=== PATIENT | male | born 1945 | race Two or more races ===

== ENCOUNTER → 2020-12-04 | Outpatient (CLI) | payer OTHER ==
[2020-12-04 09:58] LABS: Basophils # (auto) 0 10 ^3/uL (0-0.2); Basophils % (auto) 0.3 % (0.0-2.0); Eosinophils # (auto) 0.1 10 ^3/uL (0-0.8); Eosinophils % (auto) 0.8 % (0.0-7.0); Hematocrit 43.5 % (41.0-53.0); Hemoglobin 15.3 g/dL (13.5-17.5); Lymphocytes # (auto) 1.5 10 ^3/uL (0.4-5.4); Lymphocytes % (auto) 17.3 % (10.0-50.0); Mean Corpuscular Hemoglobin 30.4 pg (28.0-32.0); Mean Corpuscular Hgb Conc. 35.3 g/dL (32.0-36.0); Monocytes # (auto) 0.6 10 ^3/uL (0-1.3); Monocytes % (auto) 6.8 % (0.0-12.0); Neutrophils # (auto) 6.4 10 ^3/uL (1.6-8.6); Neutrophils % (auto) 74.8 % (37.0-80.0); Nucleated Red Blood Cells % 0.1 %; Platelet Count (auto) 191 10^3/uL (140-450); Red Blood Cells 5.05 10^6/uL (4.5-5.90); Red Cell Distribution Width 14.1 % (11.8-14.3); White Blood Cell 8.6 10^3/uL (4.4-10.8)
[2020-12-04 11:16] LABS: Potassium 4.1 mmol/L (3.5-5.1)
[2020-12-04 11:24] LABS: Albumin 3.3 g/dL (3.4-5.0); BUN/Creatinine Ratio 18.2; Bilirubin, Total 0.5 mg/dL (0.2-1.0); Calcium 8.8 mg/dL (8.5-10.1); Total Protein 7.3 g/dL (6.4-8.2)
== END | disposition home or self-care (01) ==
LOC: LAB 09:34
PROVIDERS: ATTEND Student in an Organized Health Care Education/Training Program
DX: Z12.11 Encounter for screening for malignant neoplasm of colon (principal); Z76.89 Persons encountering health services in other specified circumstances; E78.5 Hyperlipidemia, unspecified; E11.9 Type 2 diabetes mellitus without complications
CPT/HCPCS: 36415; 80053; 80061; 82274; 83036; 84443; 85025

== ENCOUNTER 2021-05-27 11:13 | Emergency (ER) | payer OTHER ==
[~2021-05-27] VITALS: Ht 177.8 cm; Wt 78.9 kg
[2021-05-27 13:54] LABS: Basophils # (auto) 0.1 10 ^3/uL (0-0.2); Eosinophils # (auto) 0.1 10 ^3/uL (0-0.8); Eosinophils % (auto) 1.2 % (0.0-7.0); Hematocrit 49.5 % (41.0-53.0); Lymphocytes % (auto) 21.2 % (10.0-50.0); Mean Corpuscular Hemoglobin 29.5 pg (28.0-32.0); Mean Corpuscular Hgb Conc. 34.3 g/dL (32.0-36.0); Mean Corpuscular Volume 86.1 fL (80.0-100.0); Monocytes # (auto) 0.6 10 ^3/uL (0-1.3); Monocytes % (auto) 6.8 % (0.0-12.0); Neutrophils # (auto) 6.7 10 ^3/uL (1.6-8.6); Neutrophils % (auto) 69.8 % (37.0-80.0); Nucleated Red Blood Cells % 0.2 %; Red Blood Cells 5.75 10^6/uL (4.5-5.90); Red Cell Distribution Width 13.8 % (11.8-14.3); White Blood Cell 9.6 10^3/uL (4.4-10.8)
[2021-05-27 14:15] LABS: Albumin 3.4 g/dL (3.4-5.0)
[2021-05-27 14:17] LABS: BUN/Creatinine Ratio 16.9
[2021-05-27 14:19] LABS: Bilirubin, Total 0.5 mg/dL (0.2-1.0); Total Protein 7.3 g/dL (6.4-8.2)
[2021-05-27 15:08] VITALS: BP 183/84
[2021-05-27 15:33] LABS: Urine Bacteria FEW /hpf (None Seen); Urine Blood TRACE /uL (Negative); Urine Hyaline Cast FEW /lpf (0 - 2); Urine Mucus FEW (None Seen); Urine Specific Gravity 1.031 (1.001-1.035); Urine WBC 3 /hpf (0 - 3)
== END 2021-05-27 16:15 | disposition home or self-care (01) ==
LOC: ER 11:13
DX: G44.209 Tension-type headache, unspecified, not intractable (principal); E11.65 Type 2 diabetes mellitus with hyperglycemia; I10 Essential (primary) hypertension; F17.210 Nicotine dependence, cigarettes, uncomplicated
CPT/HCPCS: 36415; 70450; 80053; 81001; 85025

== ENCOUNTER 2021-06-07 09:44 | Inpatient (IN) | payer OTHER ==
[~2021-06-07] VITALS: Ht 177.8 cm; Wt 73.0 kg
[2021-06-07 10:43] LABS: Basophils # (auto) 0.1 10 ^3/uL (0-0.2); Basophils % (auto) 0.7 % (0.0-2.0); Eosinophils # (auto) 0 10 ^3/uL (0-0.8); Eosinophils % (auto) 0.4 % (0.0-7.0); Hematocrit 50.1 % (41.0-53.0); Hemoglobin 17.4 g/dL (13.5-17.5); Lymphocytes # (auto) 1.4 10 ^3/uL (0.4-5.4); Lymphocytes % (auto) 14.3 % (10.0-50.0); Mean Corpuscular Hemoglobin 30.2 pg (28.0-32.0); Mean Corpuscular Hgb Conc. 34.9 g/dL (32.0-36.0); Mean Corpuscular Volume 86.6 fL (80.0-100.0); Monocytes # (auto) 0.6 10 ^3/uL (0-1.3); Monocytes % (auto) 6.1 % (0.0-12.0); Neutrophils % (auto) 78.5 % (37.0-80.0); Red Blood Cells 5.78 10^6/uL (4.5-5.90); Red Cell Distribution Width 13.5 % (11.8-14.3); White Blood Cell 10.1 10^3/uL (4.4-10.8)
[2021-06-07 11:05] LABS: Albumin 3.3 g/dL (3.4-5.0); Anion Gap 6 (5-15); Blood Urea Nitrogen 12 mg/dL (7-18); Calcium 8.8 mg/dL (8.5-10.1); Carbon Dioxide 25 mmol/L (21-32); Chloride 101 mmol/L (98-107); Glucose 348 mg/dL (74-106); Potassium 4.1 mmol/L (3.5-5.1); Sodium 132 mmol/L (136-145)
[2021-06-07 11:10] LABS: Alanine Aminotransferase 26 U/L (16-61); Alkaline Phosphatase 87 U/L (45-117); Aspartate Aminotransferase 18 U/L (15-37); BUN/Creatinine Ratio 12.4; Bilirubin, Total 0.7 mg/dL (0.2-1.0); GFR African American 97 mL/min; GFR Non-African American 80 mL/min; Total Protein 7.6 g/dL (6.4-8.2)
[2021-06-07] MEDS ORDERED: IOHEXOL 350 MG/ML 100ML IJ ONE (14:38)
[2021-06-07] MEDS ORDERED: cloNIDine HCL 0.1 MG TAB PO ONE (16:00)
[2021-06-07] MEDS ORDERED: DEXTROSE (50%) 50ML SYRG IV PRN (16:30)
[2021-06-07] MEDS ORDERED: NITROGLYCERIN 0.4 MG SL TAB SL PRN (16:30)
[2021-06-07] MEDS ORDERED: LORazepam 0.5 MG TAB PO PRN (16:30)
[2021-06-07] MEDS ORDERED: ALBUTEROL SULF 2.5 MG/0.5ML(0.5%) NEB SOLN NEB PRN (16:30)
[2021-06-07] MEDS ORDERED: IPRATROPIUM BROM 0.5 MG/2.5ML INH SOL NEB PRN (16:30)
[2021-06-07] MEDS ORDERED: DOCUSATE CALCIUM 240 MG CAP PO PRN (16:30)
[2021-06-07] MEDS ORDERED: ONDANSETRON HCL 4 MG/2 ML VIAL IV PRN (16:30)
[2021-06-07] MEDS ORDERED: MORPHINE SULF INJ 2 MG/ML SYRINGE 1ML IV PRN (16:30)
[2021-06-07] MEDS ORDERED: SODIUM CHLORIDE 0.9% 1,000 ML IV ONE (16:45)
[2021-06-07] MEDS: SODIUM CHLORIDE 0.9% 1,000 ML IV SCH (16:52)
[2021-06-07] MEDS: ACCU-CHEK COMFORT CURVE STRIP VI SCH (20:25)
[2021-06-07] MEDS: InsuLIN REG 1unit/0.01ml Soln (100units/ml) SC SCH (20:26)
[2021-06-07 22:00] VITALS: BP 145/71
[2021-06-07] MEDS: INSULIN LANTUS (GLARGINE) 1 /0.01ml (100units/ml) SC SCH (22:23)
[2021-06-07 23:12] VITALS: BP 145/71
[2021-06-08 00:06] VITALS: BP 145/71
[2021-06-08] MEDS: ACCU-CHEK COMFORT CURVE STRIP VI SCH ×7 (00:10→23:46)
[2021-06-08] MEDS: InsuLIN REG 1unit/0.01ml Soln (100units/ml) SC SCH ×6 (00:11→20:30)
[2021-06-08] MEDS ORDERED: ATOR10TA PO (00:12)
[2021-06-08] MEDS ORDERED: METF-490 PO (00:12)
[2021-06-08] MEDS ORDERED: LISI-275 PO (00:13)
[2021-06-08 05:00] VITALS: BP 158/69
[2021-06-08 06:03] LABS: Basophils # (auto) 0 10 ^3/uL (0-0.2); Basophils % (auto) 0.5 % (0.0-2.0); Eosinophils # (auto) 0.2 10 ^3/uL (0-0.8); Eosinophils % (auto) 1.8 % (0.0-7.0); Hematocrit 42.8 % (41.0-53.0); Hemoglobin 14.8 g/dL (13.5-17.5); Lymphocytes # (auto) 1.1 10 ^3/uL (0.4-5.4); Mean Corpuscular Hemoglobin 30.1 pg (28.0-32.0); Mean Corpuscular Hgb Conc. 34.6 g/dL (32.0-36.0); Mean Corpuscular Volume 86.9 fL (80.0-100.0); Monocytes # (auto) 0.6 10 ^3/uL (0-1.3); Monocytes % (auto) 6.8 % (0.0-12.0); Neutrophils # (auto) 7.3 10 ^3/uL (1.6-8.6); Neutrophils % (auto) 78.9 % (37.0-80.0); Red Blood Cells 4.93 10^6/uL (4.5-5.90); Red Cell Distribution Width 13.6 % (11.8-14.3); White Blood Cell 9.3 10^3/uL (4.4-10.8)
[2021-06-08 06:29] LABS: Albumin 2.5 g/dL (3.4-5.0); Anion Gap 6 (5-15); Blood Urea Nitrogen 18 mg/dL (7-18); Calcium 8.1 mg/dL (8.5-10.1); Carbon Dioxide 26 mmol/L (21-32); Chloride 109 mmol/L (98-107); Glucose 164 mg/dL (74-106); Potassium 3.7 mmol/L (3.5-5.1); Sodium 141 mmol/L (136-145)
[2021-06-08 06:38] LABS: Alanine Aminotransferase 23 U/L (16-61); Alkaline Phosphatase 68 U/L (45-117); Aspartate Aminotransferase 15 U/L (15-37); BUN/Creatinine Ratio 19.1; Bilirubin, Total 0.4 mg/dL (0.2-1.0); GFR African American 101 mL/min; GFR Non-African American 83 mL/min
[2021-06-08] MEDS: SODIUM CHLORIDE 0.9% 1,000 ML IV SCH ×2 (06:50→19:25)
[2021-06-08 08:19] LABS: Urine Bacteria NONE SEEN /hpf (None Seen); Urine Blood Negative /uL (Negative); Urine Hyaline Cast FEW /lpf (0 - 2); Urine Specific Gravity 1.027 (1.001-1.035); Urine WBC <1 /hpf (0 - 3)
[2021-06-08] MEDS: ENOXAPARIN SOD 40 MG/0.4 ML SYRINGE SC SCH (08:50)
[2021-06-08] MEDS: PANTOPRAZOLE 40 MG TAB PO SCH (08:50)
[2021-06-08] MEDS: hydrALAZINE HCL 20 MG/ML VL IV PRN ×3 (08:51→23:35)
[2021-06-08 09:00] VITALS: BP 178/77
[2021-06-08] MEDS ORDERED: ASPirin 81 mg TAB PO ONE (10:15)
[2021-06-08] MEDS ORDERED: LISINOPRIL 20 MG TAB PO ONE (10:30)
[2021-06-08 13:00] VITALS: BP 179/81
[2021-06-08 17:00] VITALS: BP 165/77
[2021-06-08] MEDS: INSULIN LANTUS (GLARGINE) 1 /0.01ml (100units/ml) SC SCH (21:42)
[2021-06-08 22:00] VITALS: BP 165/98
[2021-06-08] MEDS ORDERED: METOPROLOL TARTRATE 50 MG TAB PO SCH (22:00)
[2021-06-09] MEDS: InsuLIN REG 1unit/0.01ml Soln (100units/ml) SC SCH ×6 (00:32→20:12)
[2021-06-09] MEDS: ACCU-CHEK COMFORT CURVE STRIP VI SCH ×5 (04:00→20:25)
[2021-06-09] MEDS: MORPHINE SULF INJ 2 MG/ML SYRINGE 1ML IV PRN (04:43)
[2021-06-09 05:00] VITALS: BP 155/69
[2021-06-09] MEDS: hydrALAZINE HCL 20 MG/ML VL IV PRN (06:52)
[2021-06-09] MEDS: SODIUM CHLORIDE 0.9% 1,000 ML IV SCH ×2 (08:45→21:36)
[2021-06-09 09:00] VITALS: BP 134/65
[2021-06-09] MEDS: ASPirin 81 mg TAB PO SCH (10:33)
[2021-06-09] MEDS: ENOXAPARIN SOD 40 MG/0.4 ML SYRINGE SC SCH (10:33)
[2021-06-09] MEDS: LISINOPRIL 20 MG TAB PO SCH (10:34)
[2021-06-09] MEDS: PANTOPRAZOLE 40 MG TAB PO SCH (10:34)
[2021-06-09] MEDS: METOPROLOL TARTRATE 25 MG TAB PO SCH ×2 (10:34→21:35)
[2021-06-09] MEDS: ACETAMINOPHEN 500 MG TAB PO PRN (11:33)
[2021-06-09 13:00] VITALS: BP 129/81
[2021-06-09] MEDS: ALPRAZolam 0.5 MG TAB PO SCH ×2 (14:09→21:35)
[2021-06-09 17:00] VITALS: BP 134/64
[2021-06-09] MEDS: INSULIN LANTUS (GLARGINE) 1 /0.01ml (100units/ml) SC SCH (21:34)
[2021-06-09] MEDS: cloNIDine HCL 0.1 MG TAB PO PRN (21:36)
[2021-06-09 22:00] VITALS: BP 163/69
[2021-06-10] MEDS: ACCU-CHEK COMFORT CURVE STRIP VI SCH ×6 (00:23→20:11)
[2021-06-10] MEDS: InsuLIN REG 1unit/0.01ml Soln (100units/ml) SC SCH ×6 (04:00→20:22)
[2021-06-10 05:00] VITALS: BP 159/60
[2021-06-10] MEDS: ALPRAZolam 0.5 MG TAB PO SCH ×3 (06:00→22:36)
[2021-06-10 09:00] VITALS: BP 140/79
[2021-06-10] MEDS: METOPROLOL TARTRATE 25 MG TAB PO SCH ×2 (09:38→22:35)
[2021-06-10] MEDS: ASPirin 81 mg TAB PO SCH (09:38)
[2021-06-10] MEDS: LISINOPRIL 20 MG TAB PO SCH (09:39)
[2021-06-10] MEDS: ENOXAPARIN SOD 40 MG/0.4 ML SYRINGE SC SCH (09:39)
[2021-06-10] MEDS: PANTOPRAZOLE 40 MG TAB PO SCH (09:39)
[2021-06-10] MEDS: SODIUM CHLORIDE 0.9% 1,000 ML IV SCH (11:28)
[2021-06-10 13:00] VITALS: BP 169/82
[2021-06-10] MEDS: ACETAMINOPHEN 500 MG TAB PO PRN (20:17)
[2021-06-10 22:00] VITALS: BP 103/68
[2021-06-10] MEDS: INSULIN LANTUS (GLARGINE) 1 /0.01ml (100units/ml) SC SCH (22:39)
[2021-06-11] MEDS: ACCU-CHEK COMFORT CURVE STRIP VI SCH ×6 (00:10→20:12)
[2021-06-11] MEDS: SODIUM CHLORIDE 0.9% 1,000 ML IV SCH ×2 (00:45→14:05)
[2021-06-11] MEDS: InsuLIN REG 1unit/0.01ml Soln (100units/ml) SC SCH ×6 (04:06→20:00)
[2021-06-11] MEDS: cloNIDine HCL 0.1 MG TAB PO PRN ×2 (04:06→18:01)
[2021-06-11 05:00] VITALS: BP 188/103
[2021-06-11] MEDS: ALPRAZolam 0.5 MG TAB PO SCH ×3 (06:00→21:54)
[2021-06-11 06:14] LABS: Partial Thromboplastin Time 31.8 sec (23.6-33.0)
[2021-06-11] MEDS: hydrALAZINE HCL 20 MG/ML VL IV PRN ×2 (06:52→16:35)
[2021-06-11 09:00] VITALS: BP 132/64
[2021-06-11] MEDS: METOPROLOL TARTRATE 25 MG TAB PO SCH ×2 (09:33→21:54)
[2021-06-11] MEDS: PANTOPRAZOLE 40 MG TAB PO SCH (09:33)
[2021-06-11] MEDS: ASPirin 81 mg TAB PO SCH (09:33)
[2021-06-11] MEDS: LISINOPRIL 20 MG TAB PO SCH (09:34)
[2021-06-11] MEDS: ENOXAPARIN SOD 40 MG/0.4 ML SYRINGE SC SCH (09:34)
[2021-06-11 13:00] VITALS: BP 157/79
[2021-06-11] MEDS ORDERED: LIDOCAINE 2%HCL (LOCAL ANESTH.) INJ 20ML MDV ONE (13:23)
[2021-06-11] MEDS ORDERED: SODIUM CHL 0.9% 50 ML ONE (13:23)
[2021-06-11] MEDS ORDERED: fentaNYL CITRATE 100 MCG/2 ML VL ONE (13:23)
[2021-06-11] MEDS ORDERED: MIDAZOLAM HCL 2MG/2ML 2ml VIAL (1mg/ml) ONE (13:23)
[2021-06-11] MEDS ORDERED: ANGIOMAX 250 MG VIAL IV ONE (13:23)
[2021-06-11] MEDS ORDERED: IOHEXOL 350 MG/ML 100ML IJ ONE ×2 (13:23→14:26)
[2021-06-11] MEDS ORDERED: NITROGLYCERIN 0.4MG/DOSE SPRAY 4.9GM ONE (13:49)
[2021-06-11] MEDS ORDERED: CLOPIDOGREL 300 MG TAB ONE (14:33)
[2021-06-11] MEDS ORDERED: ASPirin 325 MG TAB ONE (14:33)
[2021-06-11 16:41] VITALS: BP 199/82
[2021-06-11] MEDS: ACETAMINOPHEN 500 MG TAB PO PRN (20:15)
[2021-06-11 22:00] VITALS: BP 168/75
[2021-06-11] MEDS: INSULIN LANTUS (GLARGINE) 1 /0.01ml (100units/ml) SC SCH (22:00)
[2021-06-12] MEDS: cloNIDine HCL 0.1 MG TAB PO PRN ×2 (00:03→12:53)
[2021-06-12] MEDS: hydrALAZINE HCL 20 MG/ML VL IV PRN ×2 (01:12→21:27)
[2021-06-12 02:55] VITALS: BP 137/71
[2021-06-12] MEDS: MORPHINE SULF INJ 2 MG/ML SYRINGE 1ML IV PRN ×2 (03:04→21:28)
[2021-06-12] MEDS: SODIUM CHLORIDE 0.9% 1,000 ML IV SCH ×2 (03:25→16:30)
[2021-06-12] MEDS: ACCU-CHEK COMFORT CURVE STRIP VI SCH ×6 (04:00→20:00)
[2021-06-12] MEDS: InsuLIN REG 1unit/0.01ml Soln (100units/ml) SC SCH ×6 (04:00→20:49)
[2021-06-12 05:33] VITALS: BP 144/94
[2021-06-12] MEDS: ALPRAZolam 0.5 MG TAB PO SCH ×4 (06:00→21:29)
[2021-06-12 09:00] VITALS: BP 145/71
[2021-06-12] MEDS: ASPirin-EC 81 mg tab PO SCH (09:23)
[2021-06-12] MEDS: PANTOPRAZOLE 40 MG TAB PO SCH (09:24)
[2021-06-12] MEDS: METOPROLOL TARTRATE 25 MG TAB PO SCH ×2 (09:24→21:29)
[2021-06-12] MEDS: CLOPIDOGREL BISULFATE 75 MG TAB PO SCH (09:24)
[2021-06-12] MEDS: ENOXAPARIN SOD 40 MG/0.4 ML SYRINGE SC SCH (09:25)
[2021-06-12] MEDS: LISINOPRIL 20 MG TAB PO SCH (09:25)
[2021-06-12 12:30] VITALS: BP 176/83
[2021-06-12 16:41] VITALS: BP 138/62
[2021-06-12] MEDS: INSULIN LANTUS (GLARGINE) 1 /0.01ml (100units/ml) SC SCH (21:33)
[2021-06-12 22:00] VITALS: BP 148/78
[2021-06-13] MEDS: ACCU-CHEK COMFORT CURVE STRIP VI SCH ×4 (00:18→11:52)
[2021-06-13] MEDS: InsuLIN REG 1unit/0.01ml Soln (100units/ml) SC SCH ×4 (00:18→11:55)
[2021-06-13 05:00] VITALS: BP 136/69
[2021-06-13] MEDS: ALPRAZolam 0.5 MG TAB PO SCH (06:00)
[2021-06-13] MEDS: SODIUM CHLORIDE 0.9% 1,000 ML IV SCH (06:14)
[2021-06-13] MEDS: ACETAMINOPHEN 500 MG TAB PO PRN (07:05)
[2021-06-13 08:00] VITALS: BP 163/80
[2021-06-13] MEDS: ASPirin-EC 81 mg tab PO SCH (08:24)
[2021-06-13 09:00] VITALS: BP 163/80
[2021-06-13] MEDS: PANTOPRAZOLE 40 MG TAB PO SCH (09:41)
[2021-06-13] MEDS: CLOPIDOGREL BISULFATE 75 MG TAB PO SCH (09:41)
[2021-06-13] MEDS: LISINOPRIL 20 MG TAB PO SCH (09:41)
[2021-06-13] MEDS: METOPROLOL TARTRATE 25 MG TAB PO SCH (09:42)
[2021-06-13] MEDS: ENOXAPARIN SOD 40 MG/0.4 ML SYRINGE SC SCH (09:42)
[2021-06-13 13:00] VITALS: BP 143/72
[2021-06-13 16:05] VITALS: BP 143/72
[2021-06-13 17:00] VITALS: BP 132/68
== END 2021-06-13 17:10 | disposition home or self-care (01) | DRG 246 ==
LOC: ER 09:44 → TELE-WESTW 16:30
PROVIDERS: ADMIT Family Medicine; ATTEND Family Medicine
PROC: 027136Z Dilation of Coronary Artery, Two Arteries with Three Drug-eluting Intraluminal Devices, Percutaneous Approach (ICD-10-PCS; principal; 2021-06-11)
PROC: 4A023N7 Measurement of Cardiac Sampling and Pressure, Left Heart, Percutaneous Approach (ICD-10-PCS; 2021-06-11)
PROC: B2111ZZ Fluoroscopy of Multiple Coronary Arteries using Low Osmolar Contrast (ICD-10-PCS; 2021-06-11)
PROC: B2151ZZ Fluoroscopy of Left Heart using Low Osmolar Contrast (ICD-10-PCS; 2021-06-11)
DX: I25.10 Atherosclerotic heart disease of native coronary artery without angina pectoris (principal); J96.00 Acute respiratory failure, unspecified whether with hypoxia or hypercapnia; J90 Pleural effusion, not elsewhere classified; E86.0 Dehydration; I10 Essential (primary) hypertension; E11.65 Type 2 diabetes mellitus with hyperglycemia; R10.13 Epigastric pain; Z20.822 Contact with and (suspected) exposure to COVID-19; F17.210 Nicotine dependence, cigarettes, uncomplicated; Z83.3 Family history of diabetes mellitus; Z98.61 Coronary angioplasty status; Z71.6 Tobacco abuse counseling
CPT/HCPCS: 36415; 71045; 71046; 71275; 80053; 81001; 82010; 82962; 83036; 83690; 83880; 84443; 84484; 85025; 85379; 85610; 85730; 86850; 86900; 86901; 87426; 93005; 93306; 93970; 96360; 97163; 99152; 99153; G0378; J1815; J2250

== ENCOUNTER 2021-06-20 11:06 | Inpatient (IN) | payer OTHER ==
[~2021-06-20] VITALS: Ht 177.8 cm; Wt 35.4 kg
[~2021-06-20 11:06] MED LIST: ATOR10TA PO; LISI-275 PO; METF-490 PO
[2021-06-20 11:55] LABS: Basophils # (auto) 0.1 10 ^3/uL (0-0.2); Basophils % (auto) 0.8 % (0.0-2.0); Eosinophils # (auto) 0 10 ^3/uL (0-0.8); Eosinophils % (auto) 0.6 % (0.0-7.0); Hematocrit 46.8 % (41.0-53.0); Hemoglobin 15.7 g/dL (13.5-17.5); Lymphocytes # (auto) 1.1 10 ^3/uL (0.4-5.4); Lymphocytes % (auto) 12.9 % (10.0-50.0); Mean Corpuscular Hemoglobin 29.1 pg (28.0-32.0); Mean Corpuscular Hgb Conc. 33.6 g/dL (32.0-36.0); Mean Corpuscular Volume 86.6 fL (80.0-100.0); Monocytes # (auto) 0.5 10 ^3/uL (0-1.3); Monocytes % (auto) 6.1 % (0.0-12.0); Neutrophils # (auto) 6.9 10 ^3/uL (1.6-8.6); Neutrophils % (auto) 79.6 % (37.0-80.0); Red Blood Cells 5.41 10^6/uL (4.5-5.90); Red Cell Distribution Width 13.5 % (11.8-14.3); White Blood Cell 8.6 10^3/uL (4.4-10.8)
[2021-06-20 12:13] LABS: Alanine Aminotransferase 23 U/L (16-61); Albumin 2.8 g/dL (3.4-5.0); Anion Gap 7 (5-15); Blood Urea Nitrogen 18 mg/dL (7-18); Calcium 8.6 mg/dL (8.5-10.1); Carbon Dioxide 26 mmol/L (21-32); Chloride 101 mmol/L (98-107); Potassium 4.4 mmol/L (3.5-5.1); Sodium 134 mmol/L (136-145)
[2021-06-20 12:18] LABS: Alkaline Phosphatase 98 U/L (45-117); Aspartate Aminotransferase 11 U/L (15-37); Bilirubin, Total 0.4 mg/dL (0.2-1.0); GFR African American 88 mL/min; GFR Non-African American 73 mL/min; Total Protein 7.2 g/dL (6.4-8.2)
[2021-06-20 13:06] LABS: Glucose 477 mg/dL (74-106)
[2021-06-20] MEDS ORDERED: InsuLIN REG 1unit/0.01ml Soln (100units/ml) IV ONE (14:30)
[2021-06-20] MEDS ORDERED: SODIUM CHLORIDE 0.9% 500 ML IV ONE ×2 (14:30→17:00)
[2021-06-20] MEDS ORDERED: ALBUTEROL SULF 2.5 MG/0.5ML(0.5%) NEB SOLN NEB PRN (17:00)
[2021-06-20] MEDS ORDERED: hydrALAZINE HCL 20 MG/ML VL IV PRN (17:00)
[2021-06-20] MEDS ORDERED: NITROGLYCERIN 0.4 MG SL TAB SL PRN (17:00)
[2021-06-20] MEDS ORDERED: DEXTROSE (50%) 50ML SYRG IV PRN (17:00)
[2021-06-20] MEDS ORDERED: MORPHINE SULFATE INJECTION 2 MG/2 ML SYRG IV PRN ×2 (17:00)
[2021-06-20] MEDS ORDERED: IPRATROPIUM BROM 0.5 MG/2.5ML INH SOL NEB PRN (17:00)
[2021-06-20] MEDS ORDERED: LORazepam 2MG/ML-1ML VIAL IV PRN (17:00)
[2021-06-20] MEDS ORDERED: ACETAMINOPHEN 325 MG RECT SUPP PR PRN (17:00)
[2021-06-20] MEDS ORDERED: ONDANSETRON HCL 4 MG/2 ML VIAL IV PRN (17:00)
[2021-06-20] MEDS ORDERED: hydrALAZINE HCL 20 MG/ML VL IV ONE (17:00)
[2021-06-20] MEDS: SODIUM CHLORIDE 0.9% 1,000 ML IV SCH (18:13)
[2021-06-20] MEDS ORDERED: cloNIDine HCL 0.1 MG TAB PO ONE (18:15)
[2021-06-20 19:14] VITALS: BP 180/109
[2021-06-20] MEDS: ACCU-CHEK COMFORT CURVE STRIP VI SCH (20:07)
[2021-06-20] MEDS: InsuLIN REG 1unit/0.01ml Soln (100units/ml) SC SCH (20:09)
[2021-06-20] MEDS ORDERED: INSULIN LANTUS (GLARGINE) 1 /0.01ml (100units/ml) SC SCH (22:00)
[2021-06-21] MEDS: ACCU-CHEK COMFORT CURVE STRIP VI SCH ×5 (00:15→17:45)
[2021-06-21] MEDS: InsuLIN REG 1unit/0.01ml Soln (100units/ml) SC SCH ×5 (00:17→17:46)
[2021-06-21 05:20] LABS: Basophils # (auto) 0.1 10 ^3/uL (0-0.2); Basophils % (auto) 0.9 % (0.0-2.0); Eosinophils # (auto) 0.2 10 ^3/uL (0-0.8); Eosinophils % (auto) 1.9 % (0.0-7.0); Hemoglobin 14.9 g/dL (13.5-17.5); Lymphocytes # (auto) 1.4 10 ^3/uL (0.4-5.4); Lymphocytes % (auto) 16.4 % (10.0-50.0); Mean Corpuscular Hemoglobin 29.7 pg (28.0-32.0); Mean Corpuscular Hgb Conc. 34.7 g/dL (32.0-36.0); Mean Corpuscular Volume 85.5 fL (80.0-100.0); Monocytes # (auto) 0.6 10 ^3/uL (0-1.3); Monocytes % (auto) 7.5 % (0.0-12.0); Neutrophils # (auto) 6.3 10 ^3/uL (1.6-8.6); Neutrophils % (auto) 73.3 % (37.0-80.0); Red Blood Cells 5.03 10^6/uL (4.5-5.90); Red Cell Distribution Width 13.4 % (11.8-14.3); White Blood Cell 8.5 10^3/uL (4.4-10.8)
[2021-06-21 05:21] LABS: Urine Bacteria NONE SEEN /hpf (None Seen); Urine Blood Negative /uL (Negative); Urine Mucus FEW (None Seen); Urine WBC 1 /hpf (0 - 3)
[2021-06-21 05:36] LABS: Albumin 2.6 g/dL (3.4-5.0); Calcium 8.5 mg/dL (8.5-10.1); Potassium 3.4 mmol/L (3.5-5.1)
[2021-06-21 05:38] LABS: Bilirubin, Total 0.5 mg/dL (0.2-1.0); Total Protein 6.3 g/dL (6.4-8.2)
[2021-06-21] MEDS: SODIUM CHLORIDE 0.9% 1,000 ML IV SCH (06:20)
[2021-06-21] MEDS ORDERED: cefTRIAXone 1GM/50ML D5W 50 ML IV SCH (09:00)
[2021-06-21] MEDS ORDERED: ENOXAPARIN SOD 40 MG/0.4 ML SYRINGE SC SCH (10:00)
[2021-06-21] MEDS ORDERED: PANTOPRAZOLE 40 MG/10 ML VIAL INJ IV SCH (10:00)
[2021-06-21] MEDS ORDERED: POTASSIUM CHL 20 Meq TABLET PO ONE (11:00)
[2021-06-21] MEDS ORDERED: ASPirin 81 mg TAB PO ONE (13:15)
[2021-06-21] MEDS ORDERED: CLOPIDOGREL BISULFATE 75 MG TAB PO ONE (13:15)
[2021-06-21] MEDS ORDERED: ERGOCALCIFEROL 50,000 UNIT(1.25MG) CAP PO SCH (14:00)
[2021-06-21] MEDS ORDERED: MULT-1018 PO (15:44)
[2021-06-21] MEDS ORDERED: LOSA100T25 PO (15:44)
[2021-06-21] MEDS ORDERED: METO25TA5 PO (15:44)
[2021-06-21] MEDS ORDERED: METF-370 PO (15:44)
[2021-06-21] MEDS ORDERED: AMIO200T33 PO (15:44)
[2021-06-21] MEDS ORDERED: GLIM4TAB42 PO (15:44)
[2021-06-21] MEDS ORDERED: PANT40TA2 PO (15:44)
[2021-06-21] MEDS ORDERED: CYAN50008 PO (15:44)
[2021-06-21] MEDS ORDERED: LINA5TAB PO (15:44)
[2021-06-21] MEDS ORDERED: hydrALAZINE HCL 20 MG/ML VL ONE (16:08)
[2021-06-21] MEDS ORDERED: hydrALAZINE HCL 20 MG/ML VL IV ONE (16:15)
[2021-06-21] MEDS ORDERED: LORazepam 2MG/ML-1ML VIAL IV ONE (17:15)
[2021-06-21] MEDS ORDERED: LISINOPRIL 10 MG TAB PO ONE (17:15)
[2021-06-21 18:00] VITALS: BP 152/69
== END 2021-06-21 18:42 | disposition home or self-care (01) | DRG 303 ==
LOC: ER 11:06 → TELE 16:56
PROVIDERS: ADMIT Family Medicine; ATTEND Internal Medicine
DX: I25.110 Atherosclerotic heart disease of native coronary artery with unstable angina pectoris (principal); J90 Pleural effusion, not elsewhere classified; E11.65 Type 2 diabetes mellitus with hyperglycemia; I10 Essential (primary) hypertension; E11.51 Type 2 diabetes mellitus with diabetic peripheral angiopathy without gangrene; E78.5 Hyperlipidemia, unspecified; F17.210 Nicotine dependence, cigarettes, uncomplicated; F41.9 Anxiety disorder, unspecified; Z83.3 Family history of diabetes mellitus; Z98.61 Coronary angioplasty status; Z20.822 Contact with and (suspected) exposure to COVID-19
CPT/HCPCS: 36415; 71045; 71275; 80053; 81001; 82010; 82306; 82962; 83735; 83880; 84443; 84484; 85025; 85379; 85610; 87426; 93005; 96360; C9113; G0378; J0696; J1815

== ENCOUNTER 2021-07-17 09:29 | Emergency (ER) | payer OTHER ==
[~2021-07-17] VITALS: Ht 180.3 cm; Wt 77.1 kg
[2021-07-17] MEDS ORDERED: cloNIDine HCL 0.1 MG TAB PO ONE ×2 (10:15→10:45)
[2021-07-17] MEDS ORDERED: ASPirin 81 mg TAB PO ONE (10:15)
[2021-07-17 10:31] LABS: Calcium 8.9 mg/dL (8.5-10.1); Chloride 101 mmol/L (98-107); Potassium 4.2 mmol/L (3.5-5.1); Sodium 135 mmol/L (136-145)
[2021-07-17 10:36] LABS: Basophils # (auto) 0 10 ^3/uL (0-0.2); Basophils % (auto) 0.6 % (0.0-2.0); Eosinophils # (auto) 0.1 10 ^3/uL (0-0.8); Eosinophils % (auto) 1.5 % (0.0-7.0); Lymphocytes # (auto) 1.3 10 ^3/uL (0.4-5.4); Lymphocytes % (auto) 17.2 % (10.0-50.0); Mean Corpuscular Hemoglobin 29.4 pg (28.0-32.0); Mean Corpuscular Hgb Conc. 34.1 g/dL (32.0-36.0); Mean Corpuscular Volume 86.4 fL (80.0-100.0); Monocytes # (auto) 0.5 10 ^3/uL (0-1.3); Monocytes % (auto) 6.8 % (0.0-12.0); Neutrophils # (auto) 5.8 10 ^3/uL (1.6-8.6); Neutrophils % (auto) 73.9 % (37.0-80.0); Red Blood Cells 5.09 10^6/uL (4.5-5.90); Red Cell Distribution Width 13.6 % (11.8-14.3); White Blood Cell 7.8 10^3/uL (4.4-10.8)
[2021-07-17 10:39] LABS: Alanine Aminotransferase 45 U/L (16-61); Albumin 3.1 g/dL (3.4-5.0); Alkaline Phosphatase 98 U/L (45-117); Anion Gap 9 (5-15); Aspartate Aminotransferase 12 U/L (15-37); BUN/Creatinine Ratio 20.6; Bilirubin, Total 0.5 mg/dL (0.2-1.0); Blood Urea Nitrogen 20 mg/dL (7-18); Carbon Dioxide 25 mmol/L (21-32); GFR African American 97 mL/min; GFR Non-African American 80 mL/min; Glucose 378 mg/dL (74-106); Total Protein 7.1 g/dL (6.4-8.2)
[2021-07-17 12:15] VITALS: BP 164/76
== END 2021-07-17 12:26 | disposition home or self-care (01) ==
LOC: ER 09:29
DX: I16.0 Hypertensive urgency (principal); R07.89 Other chest pain; E11.65 Type 2 diabetes mellitus with hyperglycemia; F17.210 Nicotine dependence, cigarettes, uncomplicated
CPT/HCPCS: 36415; 71046; 80053; 83880; 84484; 85025; 93005

== ENCOUNTER 2021-07-19 12:51 | Inpatient (IN) | payer OTHER ==
[~2021-07-19] VITALS: Ht 177.8 cm; Wt 74.6 kg
[2021-07-19] MEDS ORDERED: ASPirin 81 mg TAB PO ONE (13:15)
[2021-07-19 14:16] LABS: Basophils # (auto) 0.1 10 ^3/uL (0-0.2); Basophils % (auto) 0.6 % (0.0-2.0); Eosinophils # (auto) 0.2 10 ^3/uL (0-0.8); Eosinophils % (auto) 1.4 % (0.0-7.0); Hemoglobin 15.5 g/dL (13.5-17.5); Lymphocytes # (auto) 2.1 10 ^3/uL (0.4-5.4); Lymphocytes % (auto) 19.2 % (10.0-50.0); Mean Corpuscular Hemoglobin 29.1 pg (28.0-32.0); Mean Corpuscular Hgb Conc. 33.6 g/dL (32.0-36.0); Mean Corpuscular Volume 86.5 fL (80.0-100.0); Monocytes # (auto) 0.7 10 ^3/uL (0-1.3); Monocytes % (auto) 6.6 % (0.0-12.0); Neutrophils # (auto) 7.7 10 ^3/uL (1.6-8.6); Neutrophils % (auto) 72.2 % (37.0-80.0); Nucleated Red Blood Cells % 0.1 %; Red Blood Cells 5.32 10^6/uL (4.5-5.90); Red Cell Distribution Width 13.3 % (11.8-14.3); White Blood Cell 10.7 10^3/uL (4.4-10.8)
[2021-07-19 14:26] LABS: Albumin 3.2 g/dL (3.4-5.0); Anion Gap 12 (5-15); Blood Urea Nitrogen 18 mg/dL (7-18); Carbon Dioxide 22 mmol/L (21-32); Chloride 103 mmol/L (98-107); Glucose 260 mg/dL (74-106); Magnesium 2.1 mg/dL (1.6-2.6); Sodium 137 mmol/L (136-145)
[2021-07-19 14:31] LABS: Alanine Aminotransferase 34 U/L (16-61); Alkaline Phosphatase 100 U/L (45-117); Aspartate Aminotransferase 11 U/L (15-37); BUN/Creatinine Ratio 16.1; Bilirubin, Total 0.4 mg/dL (0.2-1.0); GFR African American 82 mL/min; GFR Non-African American 68 mL/min; Total Protein 7.4 g/dL (6.4-8.2)
[2021-07-19] MEDS ORDERED: NITROGLYCERIN 0.4 MG SL TAB SL ONE (18:00)
[2021-07-19] MEDS ORDERED: ACETAMINOPHEN 325 MG TAB PO PRN (22:30)
[2021-07-19] MEDS ORDERED: NITROGLYCERIN 0.4 MG SL TAB SL PRN (22:30)
[2021-07-19] MEDS ORDERED: DEXTROSE (50%) 50ML SYRG IV PRN (22:30)
[2021-07-19] MEDS ORDERED: MORPHINE SULFATE INJECTION 2 MG/ML SYRG IV PRN (22:30)
[2021-07-19] MEDS ORDERED: DOCUSATE SOD 100 MG CAP PO PRN (22:30)
[2021-07-19] MEDS ORDERED: MORPHINE SULFATE 4 MG/ML SYR/VIAL IV PRN (22:30)
[2021-07-19] MEDS ORDERED: ONDANSETRON HCL 4 MG/2 ML VIAL IV PRN (22:30)
[2021-07-20] VITALS (7 sets, daily range): BP systolic 137–185; BP diastolic 63–81
[2021-07-20] MEDS: AZITHROMYCIN 500MG/ 250ML 250 ML IV SCH ×2 (00:11→21:58)
[2021-07-20] MEDS: hydrALAZINE HCL 20 MG/ML VL IV PRN ×2 (03:07→12:00)
[2021-07-20] MEDS: HYDROcodone-ACET 5/325MG TAB PO PRN (05:10)
[2021-07-20] MEDS: ACCU-CHEK COMFORT CURVE STRIP VI SCH ×4 (06:26→22:00)
[2021-07-20] MEDS: InsuLIN REG 1unit/0.01ml Soln (100units/ml) SC SCH ×4 (06:27→22:00)
[2021-07-20] MEDS: SODIUM CHLOR 0.9% PF (SALINE LOCK) 10ML VIAL/SYR IV SCH ×3 (06:44→21:58)
[2021-07-20 08:45] LABS: Basophils # (auto) 0 10 ^3/uL (0-0.2); Basophils % (auto) 0.6 % (0.0-2.0); Eosinophils # (auto) 0.2 10 ^3/uL (0-0.8); Hematocrit 44.2 % (41.0-53.0); Hemoglobin 15.1 g/dL (13.5-17.5); Lymphocytes # (auto) 1.8 10 ^3/uL (0.4-5.4); Lymphocytes % (auto) 21.9 % (10.0-50.0); Mean Corpuscular Hemoglobin 29.5 pg (28.0-32.0); Mean Corpuscular Hgb Conc. 34.2 g/dL (32.0-36.0); Mean Corpuscular Volume 86.2 fL (80.0-100.0); Monocytes # (auto) 0.5 10 ^3/uL (0-1.3); Monocytes % (auto) 6.5 % (0.0-12.0); Neutrophils # (auto) 5.7 10 ^3/uL (1.6-8.6); Nucleated Red Blood Cells % 0.1 %; Red Blood Cells 5.13 10^6/uL (4.5-5.90); Red Cell Distribution Width 13.4 % (11.8-14.3); White Blood Cell 8.2 10^3/uL (4.4-10.8)
[2021-07-20 08:59] LABS: Albumin 2.9 g/dL (3.4-5.0); BUN/Creatinine Ratio 21.8; Calcium 8.9 mg/dL (8.5-10.1); Potassium 3.8 mmol/L (3.5-5.1)
[2021-07-20 09:02] LABS: Bilirubin, Total 0.6 mg/dL (0.2-1.0); Total Protein 6.7 g/dL (6.4-8.2)
[2021-07-20] MEDS: FAMOTIDINE (10MG/ML) 2ML VL IV SCH ×2 (09:56→21:58)
[2021-07-20] MEDS: ASPirin 81 mg TAB PO SCH (09:56)
[2021-07-20] MEDS ORDERED: ZOLPIDEM TARTRATE 5 MG TAB PO PRN (10:45)
[2021-07-20] MEDS ORDERED: CLOPIDOGREL BISULFATE 75 MG TAB PO ONE (11:00)
[2021-07-20] MEDS: ATORVASTATIN 20 MG TAB PO SCH (21:58)
[2021-07-20] MEDS: METOPROLOL TARTRATE 25 MG TAB PO SCH ×3 (21:58→22:58)
[2021-07-21] MEDS: SODIUM CHLOR 0.9% PF (SALINE LOCK) 10ML VIAL/SYR IV SCH ×3 (02:00→21:31)
[2021-07-21] MEDS: ACCU-CHEK COMFORT CURVE STRIP VI SCH ×4 (04:45→21:31)
[2021-07-21] MEDS: hydrALAZINE HCL 20 MG/ML VL IV PRN (04:45)
[2021-07-21 05:00] VITALS: BP 169/78
[2021-07-21] MEDS: InsuLIN REG 1unit/0.01ml Soln (100units/ml) SC SCH ×4 (06:15→21:39)
[2021-07-21] MEDS: HYDROcodone-ACET 5/325MG TAB PO PRN (06:41)
[2021-07-21 08:50] VITALS: BP 154/76
[2021-07-21] MEDS: FAMOTIDINE (10MG/ML) 2ML VL IV SCH ×2 (10:09→21:31)
[2021-07-21] MEDS: ASPirin 81 mg TAB PO SCH (10:09)
[2021-07-21] MEDS: METOPROLOL TARTRATE 25 MG TAB PO SCH ×2 (10:09→21:39)
[2021-07-21] MEDS: LISINOPRIL 20 MG TAB PO SCH (10:10)
[2021-07-21] MEDS: CLOPIDOGREL BISULFATE 75 MG TAB PO SCH (10:10)
[2021-07-21 11:10] LABS: Cholesterol 123 mg/dL (< 200)
[2021-07-21 11:13] LABS: HDL Cholesterol 51 mg/dL (40-59); LDL Cholesterol 67 mg/dL (< 100); Triglycerides 78 mg/dL (< 150)
[2021-07-21 12:30] VITALS: BP 145/66
[2021-07-21 16:50] VITALS: BP 134/78
[2021-07-21] MEDS: AZITHROMYCIN 500MG/ 250ML 250 ML IV SCH (21:31)
[2021-07-21] MEDS: ATORVASTATIN 20 MG TAB PO SCH (21:31)
[2021-07-21 22:00] VITALS: BP 130/61
[2021-07-22] VITALS (7 sets, daily range): BP systolic 126–161; BP diastolic 59–93
[2021-07-22] MEDS: hydrALAZINE HCL 20 MG/ML VL IV PRN ×2 (05:29→22:44)
[2021-07-22] MEDS: SODIUM CHLOR 0.9% PF (SALINE LOCK) 10ML VIAL/SYR IV SCH ×3 (05:54→21:07)
[2021-07-22] MEDS: InsuLIN REG 1unit/0.01ml Soln (100units/ml) SC SCH ×4 (06:10→21:26)
[2021-07-22] MEDS: ACCU-CHEK COMFORT CURVE STRIP VI SCH ×4 (06:17→21:20)
[2021-07-22] MEDS ORDERED: ADENOSINE 61 MG in GIVE UN-DILUTED 0 ML IV STA (08:33)
[2021-07-22] MEDS: CLOPIDOGREL BISULFATE 75 MG TAB PO SCH (10:16)
[2021-07-22] MEDS: ASPirin 81 mg TAB PO SCH (10:16)
[2021-07-22] MEDS: FAMOTIDINE (10MG/ML) 2ML VL IV SCH ×2 (10:16→21:07)
[2021-07-22] MEDS: LISINOPRIL 20 MG TAB PO SCH (10:18)
[2021-07-22] MEDS: METOPROLOL TARTRATE 25 MG TAB PO SCH ×2 (10:18→21:32)
[2021-07-22] MEDS: LORazepam 2MG/ML-1ML VIAL IV PRN (12:29)
[2021-07-22] MEDS ORDERED: AZITHROMYCIN 250 MG TAB PO SCH (20:00)
[2021-07-22] MEDS: ATORVASTATIN 20 MG TAB PO SCH (21:07)
[2021-07-23 05:00] VITALS: BP 122/68
[2021-07-23] MEDS: SODIUM CHLOR 0.9% PF (SALINE LOCK) 10ML VIAL/SYR IV SCH ×2 (05:01→14:46)
[2021-07-23] MEDS: LORazepam 2MG/ML-1ML VIAL IV PRN (05:56)
[2021-07-23] MEDS: ACCU-CHEK COMFORT CURVE STRIP VI SCH ×2 (06:00→11:33)
[2021-07-23] MEDS: InsuLIN REG 1unit/0.01ml Soln (100units/ml) SC SCH ×2 (06:04→11:36)
[2021-07-23 08:47] VITALS: BP 136/76
[2021-07-23] MEDS: FAMOTIDINE (10MG/ML) 2ML VL IV SCH (09:04)
[2021-07-23] MEDS: ASPirin 81 mg TAB PO SCH (09:05)
[2021-07-23] MEDS: METOPROLOL TARTRATE 25 MG TAB PO SCH (09:05)
[2021-07-23] MEDS: LISINOPRIL 20 MG TAB PO SCH (09:06)
[2021-07-23] MEDS: CLOPIDOGREL BISULFATE 75 MG TAB PO SCH (09:06)
[2021-07-23] MEDS: hydrALAZINE HCL 20 MG/ML VL IV PRN (11:33)
[2021-07-23 12:35] VITALS: BP 157/77
[2021-07-23] MEDS ORDERED: cloNIDine HCL 0.1 MG TAB PO ONE (15:00)
== END 2021-07-23 17:00 | disposition home or self-care (01) | DRG 313 ==
LOC: ER 12:51 → EDUNIT# 22:17 → TELE 22:17 → TELE-WESTW 07-20 02:33
PROVIDERS: ADMIT Nurse Practitioner Family; ATTEND Family Medicine
DX: R07.89 Other chest pain (principal); J18.9 Pneumonia, unspecified organism; I10 Essential (primary) hypertension; E78.5 Hyperlipidemia, unspecified; F41.9 Anxiety disorder, unspecified; Z20.822 Contact with and (suspected) exposure to COVID-19; E11.65 Type 2 diabetes mellitus with hyperglycemia; I25.10 Atherosclerotic heart disease of native coronary artery without angina pectoris; Z79.84 Long term (current) use of oral hypoglycemic drugs; Z82.49 Family history of ischemic heart disease and other diseases of the circulatory system; Z83.3 Family history of diabetes mellitus; Z95.5 Presence of coronary angioplasty implant and graft; Z90.49 Acquired absence of other specified parts of digestive tract
CPT/HCPCS: 36415; 71046; 78452; 80053; 80061; 82962; 83036; 83735; 83880; 84484; 85025; 87426; 93005; 93017; 96365; G0378; J0153; J1815; J3490

== ENCOUNTER 2021-07-31 10:38 | Observation (INO) | payer OTHER ==
[~2021-07-31] VITALS: Ht 177.8 cm; Wt 72.1 kg
[2021-07-31 12:28] LABS: Basophils # (auto) 0 10 ^3/uL (0-0.2); Basophils % (auto) 0.5 % (0.0-2.0); Eosinophils # (auto) 0.1 10 ^3/uL (0-0.8); Eosinophils % (auto) 1.2 % (0.0-7.0); Hemoglobin 14.2 g/dL (13.5-17.5); Lymphocytes # (auto) 1.8 10 ^3/uL (0.4-5.4); Lymphocytes % (auto) 19.6 % (10.0-50.0); Mean Corpuscular Hemoglobin 29.7 pg (28.0-32.0); Mean Corpuscular Hgb Conc. 34.6 g/dL (32.0-36.0); Mean Corpuscular Volume 85.7 fL (80.0-100.0); Monocytes # (auto) 0.6 10 ^3/uL (0-1.3); Neutrophils # (auto) 6.8 10 ^3/uL (1.6-8.6); Neutrophils % (auto) 72.7 % (37.0-80.0); Red Blood Cells 4.79 10^6/uL (4.5-5.90); Red Cell Distribution Width 13.2 % (11.8-14.3); White Blood Cell 9.4 10^3/uL (4.4-10.8)
[2021-07-31 12:43] LABS: INR 0.96 (0.9-1.15); Partial Thromboplastin Time 32.2 sec (23.6-33.0)
[2021-07-31 12:45] LABS: Calcium 9.1 mg/dL (8.5-10.1); Chloride 99 mmol/L (98-107); Potassium 4.5 mmol/L (3.5-5.1); Sodium 133 mmol/L (136-145)
[2021-07-31 12:54] LABS: Alanine Aminotransferase 19 U/L (16-61); Albumin 3.2 g/dL (3.4-5.0); Alkaline Phosphatase 119 U/L (45-117); Anion Gap 3 (5-15); Aspartate Aminotransferase 7 U/L (15-37); BUN/Creatinine Ratio 18.9; Bilirubin, Total 0.4 mg/dL (0.2-1.0); Blood Urea Nitrogen 21 mg/dL (7-18); Carbon Dioxide 31 mmol/L (21-32); GFR African American 83 mL/min; GFR Non-African American 69 mL/min; Glucose 322 mg/dL (74-106); Total Protein 7.1 g/dL (6.4-8.2)
[2021-07-31] MEDS ORDERED: cloNIDine HCL 0.1 MG TAB ONE (13:22)
[2021-07-31] MEDS ORDERED: cloNIDine HCL 0.1 MG TAB PO ONE (13:30)
[2021-07-31] MEDS ORDERED: ISOS1TAB28 PO (13:45)
[2021-07-31] MEDS ORDERED: PAR20T GT (13:45)
[2021-07-31] MEDS ORDERED: METO-158 PO (13:45)
[2021-07-31] MEDS ORDERED: METF-372 PO (13:45)
[2021-07-31] MEDS ORDERED: AZIT500T66 PO (13:45)
[2021-07-31] MEDS ORDERED: ATOR40TA52 PO (13:45)
[2021-07-31] MEDS ORDERED: TRAM50TA2 PO (13:45)
[2021-07-31] MEDS ORDERED: LISI40TA11 PO (13:45)
[2021-07-31] MEDS ORDERED: CLOP75TA28 PO (13:46)
[2021-07-31] MEDS ORDERED: ASPI-543 PO (13:46)
[2021-07-31] MEDS ORDERED: ASPirin-EC 81 mg tab PO ONE (17:00)
[2021-07-31] MEDS ORDERED: METOPROLOL TARTRATE 1MG/1ML-5ML VIAL IV ONE (17:00)
[2021-07-31] MEDS ORDERED: MORPHINE SULFATE INJECTION 2 MG/ML SYRG IV PRN (18:00)
[2021-07-31] MEDS ORDERED: NITROGLYCERIN 0.4 MG SL TAB SL PRN (18:00)
[2021-07-31] MEDS ORDERED: DEXTROSE (50%) 50ML SYRG IV PRN (18:00)
[2021-07-31] MEDS ORDERED: ALPRAZolam 0.25 MG TAB PO PRN (18:00)
[2021-07-31 21:10] VITALS: BP 177/89
[2021-07-31] MEDS: RANOLAZINE ER 500 MG TAB PO SCH (21:46)
[2021-07-31] MEDS: ACCU-CHEK COMFORT CURVE STRIP VI SCH (21:47)
[2021-07-31] MEDS: METOPROLOL TARTRATE 25 MG TAB PO SCH (21:52)
[2021-07-31] MEDS: hydrALAZINE HCL 20 MG/ML VL IV PRN (21:57)
[2021-07-31 22:00] VITALS: BP 177/89
[2021-07-31] MEDS ORDERED: ATORVASTATIN 20 MG TAB PO SCH (22:00)
[2021-07-31] MEDS: InsuLIN REG 1unit/0.01ml Soln (100units/ml) SC SCH (22:02)
[2021-08-01 05:00] VITALS: BP 153/69
[2021-08-01] MEDS: InsuLIN REG 1unit/0.01ml Soln (100units/ml) SC SCH ×2 (06:20→12:01)
[2021-08-01] MEDS: ACCU-CHEK COMFORT CURVE STRIP VI SCH ×2 (06:20→11:42)
[2021-08-01] MEDS: hydrALAZINE HCL 20 MG/ML VL IV PRN (06:21)
[2021-08-01 08:00] VITALS: BP 144/69
[2021-08-01] MEDS: RANOLAZINE ER 500 MG TAB PO SCH (09:43)
[2021-08-01] MEDS: METOPROLOL TARTRATE 25 MG TAB PO SCH (09:46)
[2021-08-01] MEDS ORDERED: ISOSORBIDE MONONITRATE ER 60 MG TAB PO SCH (10:00)
[2021-08-01] MEDS ORDERED: ASPirin-EC 81 mg tab PO SCH (10:00)
[2021-08-01] MEDS ORDERED: CLOPIDOGREL BISULFATE 75 MG TAB PO SCH (10:00)
[2021-08-01] MEDS ORDERED: LISINOPRIL 20 MG TAB PO SCH (10:00)
[2021-08-01] MEDS ORDERED: PARoxetine 20 MG TAB PO SCH (10:00)
[2021-08-01] MEDS ORDERED: INSULIN LANTUS (GLARGINE) 1 /0.01ml (100units/ml) SC ONE (11:15)
[2021-08-01] MEDS ORDERED: EMPA1TAB3 PO (12:29)
[2021-08-01 13:00] VITALS: BP 111/71
[2021-08-01] MEDS ORDERED: INSULIN LANTUS (GLARGINE) 1 /0.01ml (100units/ml) SC SCH (22:00)
== END 2021-08-01 17:30 | disposition home or self-care (01) ==
LOC: ER 10:38 → INTOOBSV 17:50 → TELE 17:50 → TELE-CENTR 21:09
PROVIDERS: ADMIT Nurse Practitioner Acute Care; ATTEND Internal Medicine
DX: R07.89 Other chest pain (principal); Z20.822 Contact with and (suspected) exposure to COVID-19; I25.10 Atherosclerotic heart disease of native coronary artery without angina pectoris; I70.0 Atherosclerosis of aorta; I10 Essential (primary) hypertension; E11.9 Type 2 diabetes mellitus without complications; F32.9 Major depressive disorder, single episode, unspecified; E78.5 Hyperlipidemia, unspecified; D84.9 Immunodeficiency, unspecified; I25.110 Atherosclerotic heart disease of native coronary artery with unstable angina pectoris; J98.11 Atelectasis; Z95.1 Presence of aortocoronary bypass graft; Z79.82 Long term (current) use of aspirin; Z79.84 Long term (current) use of oral hypoglycemic drugs; Z79.02 Long term (current) use of antithrombotics/antiplatelets; Z95.5 Presence of coronary angioplasty implant and graft; Z79.899 Other long term (current) drug therapy
CPT/HCPCS: 36415; 71045; 80053; 82962; 83735; 84484; 85025; 85610; 85730; 87081; 87426; 93005; 96372; 96374; 96375; 96376; 99285; G0378; J0360; J1815

== ENCOUNTER 2021-08-16 07:31 | Emergency (ER) | payer OTHER ==
[~2021-08-16] VITALS: Ht 177.8 cm; Wt 73.5 kg
[~2021-08-16 07:31] MED LIST changes: +ASPI-543 PO; -ATOR10TA PO; +ATOR40TA52 PO; +CLOP75TA28 PO; +EMPA1TAB3 PO; +ISOS1TAB28 PO; -LISI-275 PO; +LISI40TA11 PO; +METF-372 PO; -METF-490 PO; +METO-158 PO; +PAR20T GT; +TRAM50TA2 PO
[2021-08-16] MEDS ORDERED: cloNIDine HCL 0.1 MG TAB PO ONE (08:00)
[2021-08-16 08:45] LABS: Basophils # (auto) 0.1 10 ^3/uL (0-0.2); Basophils % (auto) 0.5 % (0.0-2.0); Eosinophils # (auto) 0.1 10 ^3/uL (0-0.8); Eosinophils % (auto) 0.7 % (0.0-7.0); Hematocrit 42.5 % (41.0-53.0); Hemoglobin 14.5 g/dL (13.5-17.5); Lymphocytes # (auto) 1.1 10 ^3/uL (0.4-5.4); Lymphocytes % (auto) 11.8 % (10.0-50.0); Mean Corpuscular Hemoglobin 29.4 pg (28.0-32.0); Mean Corpuscular Hgb Conc. 34.2 g/dL (32.0-36.0); Mean Corpuscular Volume 86.2 fL (80.0-100.0); Monocytes # (auto) 0.7 10 ^3/uL (0-1.3); Monocytes % (auto) 6.7 % (0.0-12.0); Neutrophils # (auto) 7.8 10 ^3/uL (1.6-8.6); Neutrophils % (auto) 80.3 % (37.0-80.0); Nucleated Red Blood Cells % 0.1 %; Red Blood Cells 4.93 10^6/uL (4.5-5.90); Red Cell Distribution Width 14.5 % (11.8-14.3); White Blood Cell 9.8 10^3/uL (4.4-10.8)
[2021-08-16 08:51] LABS: Albumin 3.3 g/dL (3.4-5.0); Anion Gap 5 (5-15); Blood Urea Nitrogen 16 mg/dL (7-18); Carbon Dioxide 29 mmol/L (21-32); Chloride 102 mmol/L (98-107); Glucose 169 mg/dL (74-106); Magnesium 1.8 mg/dL (1.6-2.6); Sodium 136 mmol/L (136-145)
[2021-08-16 08:58] LABS: Alanine Aminotransferase 28 U/L (16-61); Alkaline Phosphatase 82 U/L (45-117); Aspartate Aminotransferase 14 U/L (15-37); BUN/Creatinine Ratio 20.5; Bilirubin, Total 0.4 mg/dL (0.2-1.0); GFR African American 125 mL/min; GFR Non-African American 103 mL/min; Total Protein 6.9 g/dL (6.4-8.2)
[2021-08-16 09:13] LABS: Urine Bacteria NONE SEEN /hpf (None Seen); Urine Blood 1+ /uL (Negative); Urine Specific Gravity 1.022 (1.001-1.035); Urine WBC 9 /hpf (0 - 3)
[2021-08-16 09:45] VITALS: BP 134/74
[2021-08-16] MEDS ORDERED: MECLIZINE HCL 25 MG TAB PO ONE (11:30)
== END 2021-08-16 14:38 | disposition home or self-care (01) ==
LOC: ER 07:31
DX: S20.214A Contusion of middle front wall of thorax, initial encounter (principal); I16.0 Hypertensive urgency; R07.89 Other chest pain; E11.9 Type 2 diabetes mellitus without complications; I10 Essential (primary) hypertension; E78.5 Hyperlipidemia, unspecified; Z79.899 Other long term (current) drug therapy; W19.XXXA Unspecified fall, initial encounter; Y93.89 Activity, other specified; Y92.89 Other specified places as the place of occurrence of the external cause; Y99.8 Other external cause status
CPT/HCPCS: 36415; 70450; 71101; 71250; 80053; 81001; 83735; 84484; 85025; 93005; 99285; J8597

== ENCOUNTER 2021-08-19 15:39 | Emergency (ER) | payer OTHER ==
[~2021-08-19] VITALS: Ht 177.8 cm; Wt 73.5 kg
[2021-08-19 16:24] VITALS: BP 199/77
[2021-08-19 17:29] LABS: Basophils # (auto) 0 10 ^3/uL (0-0.2); Basophils % (auto) 0.4 % (0.0-2.0); Eosinophils # (auto) 0.2 10 ^3/uL (0-0.8); Eosinophils % (auto) 1.9 % (0.0-7.0); Hematocrit 43.5 % (41.0-53.0); Hemoglobin 14.7 g/dL (13.5-17.5); Lymphocytes # (auto) 1.9 10 ^3/uL (0.4-5.4); Lymphocytes % (auto) 23.2 % (10.0-50.0); Mean Corpuscular Hemoglobin 29.1 pg (28.0-32.0); Mean Corpuscular Hgb Conc. 33.7 g/dL (32.0-36.0); Mean Corpuscular Volume 86.4 fL (80.0-100.0); Monocytes # (auto) 0.6 10 ^3/uL (0-1.3); Monocytes % (auto) 7.4 % (0.0-12.0); Neutrophils # (auto) 5.4 10 ^3/uL (1.6-8.6); Neutrophils % (auto) 67.1 % (37.0-80.0); Nucleated Red Blood Cells % 0.1 %; Red Blood Cells 5.03 10^6/uL (4.5-5.90)
[2021-08-19 18:00] LABS: Albumin 3.1 g/dL (3.4-5.0); Anion Gap 7 (5-15); Blood Urea Nitrogen 15 mg/dL (7-18); Carbon Dioxide 29 mmol/L (21-32); Chloride 99 mmol/L (98-107); Glucose 263 mg/dL (74-106); Potassium 4.2 mmol/L (3.5-5.1); Sodium 135 mmol/L (136-145)
[2021-08-19 18:03] LABS: Alanine Aminotransferase 23 U/L (16-61); Aspartate Aminotransferase 15 U/L (15-37); GFR African American 123 mL/min; GFR Non-African American 102 mL/min
[2021-08-19 18:08] LABS: Alkaline Phosphatase 81 U/L (45-117); Bilirubin, Total 0.8 mg/dL (0.2-1.0); Total Protein 7.1 g/dL (6.4-8.2)
[2021-08-19 18:23] LABS: INR 0.95 (0.9-1.15)
== END 2021-08-19 20:20 | disposition home or self-care (01) ==
LOC: ER 15:39 → EDBD 15:39 → EDUNIT# 15:39 → ER 20:20
DX: S22.31XA Fracture of one rib, right side, initial encounter for closed fracture (principal); E11.9 Type 2 diabetes mellitus without complications; I10 Essential (primary) hypertension; Z79.899 Other long term (current) drug therapy; W19.XXXA Unspecified fall, initial encounter; Y93.89 Activity, other specified; Y92.89 Other specified places as the place of occurrence of the external cause; Y99.8 Other external cause status
CPT/HCPCS: 36415; 71045; 80053; 84484; 85025; 85610; 86850; 86900; 86901; 93005

== ENCOUNTER 2021-09-08 22:48 | Emergency (ER) | payer OTHER ==
[~2021-09-08] VITALS: Ht 177.8 cm; Wt 73.5 kg
[2021-09-08 23:32] LABS: Basophils # (auto) 0.1 10 ^3/uL (0-0.2); Basophils % (auto) 0.8 % (0.0-2.0); Eosinophils # (auto) 0.2 10 ^3/uL (0-0.8); Eosinophils % (auto) 2.7 % (0.0-7.0); Hematocrit 39.7 % (41.0-53.0); Hemoglobin 13.4 g/dL (13.5-17.5); Lymphocytes # (auto) 1.8 10 ^3/uL (0.4-5.4); Lymphocytes % (auto) 20.7 % (10.0-50.0); Mean Corpuscular Hemoglobin 29.4 pg (28.0-32.0); Mean Corpuscular Hgb Conc. 33.8 g/dL (32.0-36.0); Monocytes # (auto) 0.6 10 ^3/uL (0-1.3); Monocytes % (auto) 7.1 % (0.0-12.0); Neutrophils # (auto) 5.9 10 ^3/uL (1.6-8.6); Neutrophils % (auto) 68.7 % (37.0-80.0); Red Blood Cells 4.56 10^6/uL (4.5-5.90); Red Cell Distribution Width 14.6 % (11.8-14.3); White Blood Cell 8.7 10^3/uL (4.4-10.8)
[2021-09-08 23:50] LABS: INR 0.93 (0.9-1.15); Partial Thromboplastin Time 32.5 sec (23.6-33.0)
[2021-09-09 00:01] LABS: Albumin 3.1 g/dL (3.4-5.0); BUN/Creatinine Ratio 17.3; Magnesium 1.9 mg/dL (1.6-2.6); Potassium 4.4 mmol/L (3.5-5.1)
[2021-09-09 00:06] LABS: Bilirubin, Total 0.5 mg/dL (0.2-1.0); Total Protein 7.4 g/dL (6.4-8.2)
[2021-09-09 06:05] VITALS: BP 191/92
== END 2021-09-09 06:42 | disposition home or self-care (01) ==
LOC: ER 22:49
DX: R00.2 Palpitations (principal); E11.9 Type 2 diabetes mellitus without complications; I10 Essential (primary) hypertension; Z79.899 Other long term (current) drug therapy
CPT/HCPCS: 36415; 71045; 80053; 83735; 83880; 84443; 84484; 85025; 85610; 85730; 93005

== ENCOUNTER 2021-11-20 10:50 | Emergency (ER) | payer OTHER, MEDICAID ==
[~2021-11-20] VITALS: Ht 177.8 cm; Wt 77.1 kg
[2021-11-20 15:59] VITALS: BP 185/81
[2021-11-20] MEDS ORDERED: ALUM & MAG HYDROX-SIMETH LIQ(MAALOX) 30 ML PO ONE (16:00)
[2021-11-20] MEDS ORDERED: LIDOCAINE VISCOUS 2% 15ML UD MT ONE (16:00)
[2021-11-20] MEDS ORDERED: ACETAMINOPHEN 325 MG TAB PO ONE (16:30)
== END 2021-11-20 18:28 | disposition home or self-care (01) ==
LOC: ER 10:50
DX: M19.90 Unspecified osteoarthritis, unspecified site (principal); R07.89 Other chest pain; R10.9 Unspecified abdominal pain; E11.9 Type 2 diabetes mellitus without complications; I10 Essential (primary) hypertension; Z79.899 Other long term (current) drug therapy
CPT/HCPCS: 82962; 93005

== ENCOUNTER 2022-02-19 08:12 | Inpatient (IN) | payer OTHER, MEDICAID ==
[~2022-02-19] VITALS: Ht 185.4 cm; Wt 75.2 kg
[2022-02-19] MEDS ORDERED: cloNIDine HCL 0.1 MG TAB PO ONE (08:30)
[2022-02-19] MEDS ORDERED: ASPirin 81 mg TAB PO ONE (08:45)
[2022-02-19 08:55] LABS: Basophils # (auto) 0.1 10 ^3/uL (0-0.2); Basophils % (auto) 0.8 % (0.0-2.0); Eosinophils # (auto) 0.1 10 ^3/uL (0-0.8); Eosinophils % (auto) 1.1 % (0.0-7.0); Hematocrit 46.7 % (41.0-53.0); Hemoglobin 15.8 g/dL (13.5-17.5); Lymphocytes # (auto) 1.5 10 ^3/uL (0.4-5.4); Lymphocytes % (auto) 14.7 % (10.0-50.0); Mean Corpuscular Hemoglobin 28.6 pg (28.0-32.0); Mean Corpuscular Hgb Conc. 33.8 g/dL (32.0-36.0); Mean Corpuscular Volume 84.6 fL (80.0-100.0); Monocytes # (auto) 0.4 10 ^3/uL (0-1.3); Monocytes % (auto) 4.5 % (0.0-12.0); Neutrophils # (auto) 7.8 10 ^3/uL (1.6-8.6); Neutrophils % (auto) 78.9 % (37.0-80.0); Nucleated Red Blood Cells % 0.1 %; Red Blood Cells 5.52 10^6/uL (4.5-5.90); Red Cell Distribution Width 15.4 % (11.8-14.3); White Blood Cell 9.9 10^3/uL (4.4-10.8)
[2022-02-19 09:12] LABS: Potassium 3.8 mmol/L (3.5-5.1)
[2022-02-19 09:19] LABS: BUN/Creatinine Ratio 12.4; Bilirubin, Total 0.6 mg/dL (0.2-1.0); Calcium 9.1 mg/dL (8.5-10.1); Total Protein 6.9 g/dL (6.4-8.2)
[2022-02-19 09:23] LABS: Urine Bacteria NONE SEEN /hpf (None Seen); Urine Blood Negative /uL (Negative); Urine Specific Gravity 1.036 (1.001-1.035); Urine WBC <1 /hpf (0 - 3)
[2022-02-19] MEDS ORDERED: LABETALOL HCL 5 MG/ML 4ML SYRINGE IV ONE (10:00)
[2022-02-19] MEDS ORDERED: DEXTROSE (50%) 50ML SYRG IV PRN (11:00)
[2022-02-19] MEDS ORDERED: NITROGLYCERIN 0.4 MG SL TAB SL PRN (11:00)
[2022-02-19] MEDS ORDERED: MORPHINE SULFATE INJECTION 2 MG/ML SYRG IV PRN ×2 (11:00→15:45)
[2022-02-19] MEDS: ACCU-CHEK COMFORT CURVE STRIP VI SCH ×3 (11:45→21:13)
[2022-02-19] MEDS: InsuLIN REG 1unit/0.01ml Soln (100units/ml) SC SCH ×3 (11:46→21:33)
[2022-02-19] MEDS ORDERED: ACETAMINOPHEN 325 MG TAB PO PRN (15:45)
[2022-02-19] MEDS ORDERED: LORazepam 0.5 MG TAB PO PRN (15:45)
[2022-02-19] MEDS ORDERED: LABETALOL HCL 5 MG/ML 4ML SYRINGE IV PRN (15:45)
[2022-02-19] MEDS ORDERED: DOCUSATE SOD 100 MG CAP PO PRN (15:45)
[2022-02-19] MEDS ORDERED: BENAZEPRIL HCL 10 MG TAB PO ONE (15:45)
[2022-02-19 16:32] LABS: Magnesium 1.9 mg/dL (1.6-2.6); Phosphorus 3.5 mg/dL (2.5-4.90)
[2022-02-19 19:13] LABS: INR 0.97 (0.9-1.15); Partial Thromboplastin Time 31.1 sec (23.6-33.0)
[2022-02-19] MEDS: ATORVASTATIN 20 MG TAB PO SCH (21:05)
[2022-02-19] MEDS: METOPROLOL TARTRATE 50 MG TAB PO SCH (21:06)
[2022-02-19] MEDS: INSULIN LANTUS (GLARGINE) 1 /0.01ml (100units/ml) SC SCH (21:34)
[2022-02-19 22:00] VITALS: BP 189/93
[2022-02-20] VITALS (15 sets, daily range): BP systolic 118–200; BP diastolic 49–92
[2022-02-20] MEDS: hydrALAZINE HCL 20 MG/ML VL IV PRN ×3 (00:11→16:45)
[2022-02-20] MEDS: ONDANSETRON HCL 4 MG/2 ML VIAL IV PRN ×3 (00:12→21:15)
[2022-02-20 06:35] LABS: Basophils # (auto) 0.1 10 ^3/uL (0-0.2); Basophils % (auto) 0.7 % (0.0-2.0); Eosinophils # (auto) 0.2 10 ^3/uL (0-0.8); Eosinophils % (auto) 1.9 % (0.0-7.0); Hematocrit 39.8 % (41.0-53.0); Hemoglobin 13.9 g/dL (13.5-17.5); Lymphocytes # (auto) 1.5 10 ^3/uL (0.4-5.4); Lymphocytes % (auto) 16.8 % (10.0-50.0); Mean Corpuscular Hemoglobin 29.1 pg (28.0-32.0); Mean Corpuscular Volume 83.3 fL (80.0-100.0); Monocytes # (auto) 0.5 10 ^3/uL (0-1.3); Monocytes % (auto) 5.8 % (0.0-12.0); Neutrophils # (auto) 6.7 10 ^3/uL (1.6-8.6); Neutrophils % (auto) 74.8 % (37.0-80.0); Nucleated Red Blood Cells % 0.1 %; Red Blood Cells 4.77 10^6/uL (4.5-5.90); Red Cell Distribution Width 15.5 % (11.8-14.3)
[2022-02-20 06:42] LABS: Magnesium 1.9 mg/dL (1.6-2.6); Potassium 3.9 mmol/L (3.5-5.1); Uric Acid 4.3 mg/dL (3.5-7.2)
[2022-02-20 06:49] LABS: Albumin 2.6 g/dL (3.4-5.0); BUN/Creatinine Ratio 10.8; Bilirubin, Total 0.8 mg/dL (0.2-1.0); CRP High Sensitivity 0.08 mg/dL (< 0.3); Calcium 8.5 mg/dL (8.5-10.1); Phosphorus 3.4 mg/dL (2.5-4.90); Total Protein 6.2 g/dL (6.4-8.2)
[2022-02-20] MEDS: ACCU-CHEK COMFORT CURVE STRIP VI SCH ×4 (06:52→21:43)
[2022-02-20] MEDS: InsuLIN REG 1unit/0.01ml Soln (100units/ml) SC SCH ×4 (06:59→21:56)
[2022-02-20] MEDS: INSULIN LANTUS (GLARGINE) 1 /0.01ml (100units/ml) SC SCH ×2 (06:59→21:56)
[2022-02-20 07:39] LABS: INR 0.97 (0.9-1.15); Partial Thromboplastin Time 31.9 sec (23.6-33.0)
[2022-02-20] MEDS: ASPirin-EC 81 mg tab PO SCH (08:42)
[2022-02-20] MEDS: FAMOTIDINE (10MG/ML) 2ML VL IV SCH (08:42)
[2022-02-20] MEDS: METOPROLOL TARTRATE 50 MG TAB PO SCH ×2 (08:44→21:16)
[2022-02-20] MEDS: PARoxetine 20 MG TAB PO SCH (08:45)
[2022-02-20] MEDS: BENAZEPRIL HCL 10 MG TAB PO SCH (08:45)
[2022-02-20] MEDS: CLOPIDOGREL BISULFATE 75 MG TAB PO SCH (08:45)
[2022-02-20] MEDS: ENOXAPARIN SOD 40 MG/0.4 ML SYRINGE SC SCH (08:46)
[2022-02-20] MEDS ORDERED: NIFEdipine ER 30 MG TAB PO ONE (10:45)
[2022-02-20] MEDS ORDERED: hydrALAZINE HCL 20 MG/ML VL IV ONE (10:45)
[2022-02-20] MEDS: HYDROcodone-ACET 5/325MG TAB PO PRN (12:04)
[2022-02-20] MEDS ORDERED: IOHEXOL 350 MG/ML 100ML IJ ONE ×2 (15:04→15:10)
[2022-02-20] MEDS ORDERED: LORazepam 2MG/ML-1ML VIAL IV PRN (20:15)
[2022-02-20] MEDS ORDERED: ACETAMINOPHEN 325 MG TAB PO PRN (20:15)
[2022-02-20] MEDS: ATORVASTATIN 20 MG TAB PO SCH (21:15)
[2022-02-21] VITALS (36 sets, daily range): BP systolic 123–216; BP diastolic 45–105
[2022-02-21] MEDS: hydrALAZINE HCL 20 MG/ML VL IV PRN ×2 (00:38→13:17)
[2022-02-21 04:07] LABS: Basophils # (auto) 0.1 10 ^3/uL (0-0.2); Basophils % (auto) 0.8 % (0.0-2.0); Eosinophils # (auto) 0.1 10 ^3/uL (0-0.8); Eosinophils % (auto) 0.5 % (0.0-7.0); Hematocrit 42.2 % (41.0-53.0); Hemoglobin 14.4 g/dL (13.5-17.5); Lymphocytes # (auto) 1.6 10 ^3/uL (0.4-5.4); Mean Corpuscular Hemoglobin 28.5 pg (28.0-32.0); Mean Corpuscular Hgb Conc. 34.2 g/dL (32.0-36.0); Mean Corpuscular Volume 83.4 fL (80.0-100.0); Monocytes # (auto) 0.6 10 ^3/uL (0-1.3); Monocytes % (auto) 4.9 % (0.0-12.0); Neutrophils # (auto) 9.9 10 ^3/uL (1.6-8.6); Neutrophils % (auto) 80.8 % (37.0-80.0); Nucleated Red Blood Cells % 0.3 %; Red Blood Cells 5.06 10^6/uL (4.5-5.90); Red Cell Distribution Width 15.7 % (11.8-14.3); White Blood Cell 12.2 10^3/uL (4.4-10.8)
[2022-02-21 04:23] LABS: Albumin 2.6 g/dL (3.4-5.0); Calcium 8.5 mg/dL (8.5-10.1); Potassium 3.9 mmol/L (3.5-5.1)
[2022-02-21 04:25] LABS: INR 1.03 (0.9-1.15)
[2022-02-21 04:27] LABS: BUN/Creatinine Ratio 13.3; Bilirubin, Total 0.7 mg/dL (0.2-1.0); Total Protein 6.3 g/dL (6.4-8.2)
[2022-02-21 04:49] LABS: Partial Thromboplastin Time 33.6 sec (23.6-33.0)
[2022-02-21] MEDS: ACCU-CHEK COMFORT CURVE STRIP VI SCH ×4 (06:04→21:32)
[2022-02-21] MEDS: INSULIN LANTUS (GLARGINE) 1 /0.01ml (100units/ml) SC SCH ×2 (06:04→21:31)
[2022-02-21] MEDS: InsuLIN REG 1unit/0.01ml Soln (100units/ml) SC SCH ×4 (06:04→21:31)
[2022-02-21] MEDS: ENOXAPARIN SOD 40 MG/0.4 ML SYRINGE SC SCH (10:00)
[2022-02-21] MEDS: METOPROLOL TARTRATE 50 MG TAB PO SCH ×3 (10:00→21:24)
[2022-02-21] MEDS ORDERED: NIFEdipine ER 30 MG TAB PO SCH ×2 (10:00)
[2022-02-21] MEDS: BENAZEPRIL HCL 10 MG TAB PO SCH (10:11)
[2022-02-21] MEDS: FAMOTIDINE (10MG/ML) 2ML VL IV SCH (10:11)
[2022-02-21] MEDS: CLOPIDOGREL BISULFATE 75 MG TAB PO SCH (10:12)
[2022-02-21] MEDS: ASPirin-EC 81 mg tab PO SCH (10:12)
[2022-02-21] MEDS: PARoxetine 20 MG TAB PO SCH (10:12)
[2022-02-21] MEDS ORDERED: VERAPAMIL 2.5MG/ML INJ 2ML VIAL IV ONE (10:24)
[2022-02-21] MEDS ORDERED: fentaNYL CITRATE 100 MCG/2 ML VL ONE (10:24)
[2022-02-21] MEDS ORDERED: SODIUM CHL 0.9% 50 ML ONE (10:24)
[2022-02-21] MEDS ORDERED: MIDAZOLAM HCL 2MG/2ML 2ml VIAL (1mg/ml) ONE (10:24)
[2022-02-21] MEDS ORDERED: ANGIOMAX 250 MG VIAL IV ONE (10:24)
[2022-02-21] MEDS ORDERED: HEPARIN SODIUM (PORCINE) 5000 UNITS/ML 1ML VIAL ONE (10:24)
[2022-02-21] MEDS ORDERED: IODIXANOL 320MG/ML 100ML BTL IV ONE ×3 (10:34→11:17)
[2022-02-21] MEDS ORDERED: LIDOCAINE 2%HCL (LOCAL ANESTH.) INJ 10ml MDV ONE (10:34)
[2022-02-21] MEDS ORDERED: hydrALAZINE HCL 20 MG/ML VL ONE ×2 (11:15→11:31)
[2022-02-21] MEDS ORDERED: cloNIDine HCL 0.1 MG TAB ONE (11:27)
[2022-02-21] MEDS ORDERED: NIFEdipine ER 30 MG TAB PO ONE ×3 (13:00→14:04)
[2022-02-21] MEDS: ONDANSETRON HCL 4 MG/2 ML VIAL IV PRN (13:15)
[2022-02-21] MEDS: hydrALAZINE HCL 10 MG TAB PO SCH ×2 (14:08→22:00)
[2022-02-21] MEDS: NIFEdipine ER 30 MG TAB PO SCH (14:09)
[2022-02-21] MEDS: ATORVASTATIN 20 MG TAB PO SCH (21:25)
[2022-02-22] VITALS (36 sets, daily range): BP systolic 117–146; BP diastolic 50–100
[2022-02-22 03:59] LABS: Basophils # (auto) 0.1 10 ^3/uL (0-0.2); Basophils % (auto) 0.5 % (0.0-2.0); Eosinophils # (auto) 0.1 10 ^3/uL (0-0.8); Eosinophils % (auto) 0.6 % (0.0-7.0); Hematocrit 40.3 % (41.0-53.0); Hemoglobin 14.2 g/dL (13.5-17.5); Lymphocytes # (auto) 1.9 10 ^3/uL (0.4-5.4); Lymphocytes % (auto) 16.7 % (10.0-50.0); Mean Corpuscular Hemoglobin 29.1 pg (28.0-32.0); Mean Corpuscular Hgb Conc. 35.1 g/dL (32.0-36.0); Monocytes # (auto) 1.1 10 ^3/uL (0-1.3); Monocytes % (auto) 9.2 % (0.0-12.0); Neutrophils # (auto) 8.5 10 ^3/uL (1.6-8.6); Nucleated Red Blood Cells % 0.1 %; Red Blood Cells 4.86 10^6/uL (4.5-5.90); Red Cell Distribution Width 15.7 % (11.8-14.3); White Blood Cell 11.6 10^3/uL (4.4-10.8)
[2022-02-22 04:16] LABS: Calcium 8.6 mg/dL (8.5-10.1); Potassium 3.8 mmol/L (3.5-5.1)
[2022-02-22 04:18] LABS: BUN/Creatinine Ratio 16.4
[2022-02-22] MEDS: hydrALAZINE HCL 10 MG TAB PO SCH ×3 (06:00→21:00)
[2022-02-22] MEDS: InsuLIN REG 1unit/0.01ml Soln (100units/ml) SC SCH ×4 (06:24→21:24)
[2022-02-22] MEDS: ACCU-CHEK COMFORT CURVE STRIP VI SCH ×4 (06:25→21:25)
[2022-02-22] MEDS: INSULIN LANTUS (GLARGINE) 1 /0.01ml (100units/ml) SC SCH ×2 (06:25→21:24)
[2022-02-22] MEDS ORDERED: NIFEdipine ER 30 MG TAB PO SCH (10:00)
[2022-02-22] MEDS: METOPROLOL TARTRATE 50 MG TAB PO SCH ×2 (10:00→21:01)
[2022-02-22] MEDS: BENAZEPRIL HCL 10 MG TAB PO SCH (10:00)
[2022-02-22] MEDS: CLOPIDOGREL BISULFATE 75 MG TAB PO SCH (10:17)
[2022-02-22] MEDS: FAMOTIDINE (10MG/ML) 2ML VL IV SCH (10:17)
[2022-02-22] MEDS: ENOXAPARIN SOD 40 MG/0.4 ML SYRINGE SC SCH (10:17)
[2022-02-22] MEDS: ASPirin-EC 81 mg tab PO SCH (10:17)
[2022-02-22] MEDS: PARoxetine 20 MG TAB PO SCH (10:18)
[2022-02-22] MEDS: NIFEdipine ER 30 MG TAB PO SCH (10:20)
[2022-02-22] MEDS: ATORVASTATIN 20 MG TAB PO SCH (21:00)
[2022-02-23] VITALS (20 sets, daily range): BP systolic 126–170; BP diastolic 49–75
[2022-02-23] MEDS: hydrALAZINE HCL 10 MG TAB PO SCH ×3 (06:07→21:15)
[2022-02-23] MEDS: InsuLIN REG 1unit/0.01ml Soln (100units/ml) SC SCH ×4 (06:07→21:25)
[2022-02-23] MEDS: INSULIN LANTUS (GLARGINE) 1 /0.01ml (100units/ml) SC SCH ×2 (06:08→21:29)
[2022-02-23] MEDS: ACCU-CHEK COMFORT CURVE STRIP VI SCH ×4 (06:08→21:29)
[2022-02-23] MEDS: CLOPIDOGREL BISULFATE 75 MG TAB PO SCH (09:50)
[2022-02-23] MEDS: FAMOTIDINE (10MG/ML) 2ML VL IV SCH (09:50)
[2022-02-23] MEDS: ASPirin-EC 81 mg tab PO SCH (09:50)
[2022-02-23] MEDS: ENOXAPARIN SOD 40 MG/0.4 ML SYRINGE SC SCH (09:50)
[2022-02-23] MEDS: PARoxetine 20 MG TAB PO SCH (09:51)
[2022-02-23] MEDS: METOPROLOL TARTRATE 50 MG TAB PO SCH ×2 (09:52→21:14)
[2022-02-23] MEDS: BENAZEPRIL HCL 10 MG TAB PO SCH (09:53)
[2022-02-23] MEDS: NIFEdipine ER 30 MG TAB PO SCH (11:48)
[2022-02-23] MEDS: ATORVASTATIN 20 MG TAB PO SCH (19:51)
[2022-02-23] MEDS: HYDROcodone-ACET 5/325MG TAB PO PRN (19:51)
[2022-02-24] VITALS (26 sets, daily range): BP systolic 108–217; BP diastolic 42–76
[2022-02-24] MEDS: hydrALAZINE HCL 20 MG/ML VL IV PRN ×2 (02:35→09:09)
[2022-02-24 04:20] LABS: BUN/Creatinine Ratio 24.4; Calcium 8.8 mg/dL (8.5-10.1); Potassium 3.5 mmol/L (3.5-5.1)
[2022-02-24 04:21] LABS: Basophils # (auto) 0.1 10 ^3/uL (0-0.2); Basophils % (auto) 0.4 % (0.0-2.0); Eosinophils # (auto) 0.2 10 ^3/uL (0-0.8); Eosinophils % (auto) 1.3 % (0.0-7.0); Hematocrit 43.6 % (41.0-53.0); Hemoglobin 15.1 g/dL (13.5-17.5); Lymphocytes # (auto) 3.7 10 ^3/uL (0.4-5.4); Lymphocytes % (auto) 21.1 % (10.0-50.0); Mean Corpuscular Hemoglobin 28.7 pg (28.0-32.0); Mean Corpuscular Hgb Conc. 34.7 g/dL (32.0-36.0); Mean Corpuscular Volume 82.7 fL (80.0-100.0); Monocytes # (auto) 1.4 10 ^3/uL (0-1.3); Monocytes % (auto) 8.2 % (0.0-12.0); Red Blood Cells 5.27 10^6/uL (4.5-5.90); Red Cell Distribution Width 15.5 % (11.8-14.3); White Blood Cell 17.4 10^3/uL (4.4-10.8)
[2022-02-24] MEDS: hydrALAZINE HCL 10 MG TAB PO SCH ×2 (05:30→15:07)
[2022-02-24] MEDS: InsuLIN REG 1unit/0.01ml Soln (100units/ml) SC SCH ×3 (05:41→17:26)
[2022-02-24] MEDS: ACCU-CHEK COMFORT CURVE STRIP VI SCH ×3 (05:42→17:25)
[2022-02-24] MEDS: INSULIN LANTUS (GLARGINE) 1 /0.01ml (100units/ml) SC SCH (05:46)
[2022-02-24] MEDS: METOPROLOL TARTRATE 50 MG TAB PO SCH (10:03)
[2022-02-24] MEDS: CLOPIDOGREL BISULFATE 75 MG TAB PO SCH (10:03)
[2022-02-24] MEDS: ASPirin-EC 81 mg tab PO SCH (10:03)
[2022-02-24] MEDS: PARoxetine 20 MG TAB PO SCH (10:03)
[2022-02-24] MEDS: ENOXAPARIN SOD 40 MG/0.4 ML SYRINGE SC SCH (10:04)
[2022-02-24] MEDS: FAMOTIDINE (10MG/ML) 2ML VL IV SCH (10:04)
[2022-02-24] MEDS: BENAZEPRIL HCL 10 MG TAB PO SCH ×2 (10:04→12:51)
[2022-02-24] MEDS: NIFEdipine ER 30 MG TAB PO SCH ×2 (10:05→12:38)
[2022-02-24] MEDS ORDERED: METF-372 PO (13:57)
[2022-02-24] MEDS ORDERED: ISOS1TAB28 PO (13:57)
[2022-02-24] MEDS ORDERED: ERGO1CAP23 PO (13:57)
[2022-02-24] MEDS ORDERED: CLOP75TA28 PO (13:57)
[2022-02-24] MEDS ORDERED: METO-159 PO (13:57)
[2022-02-24] MEDS ORDERED: NIFE1TAB31 PO (13:57)
[2022-02-24] MEDS ORDERED: EMPA1TAB3 PO (13:57)
[2022-02-24] MEDS ORDERED: ASPI-543 PO (13:57)
[2022-02-24] MEDS ORDERED: LISI40TA11 PO (13:57)
[2022-02-24] MEDS ORDERED: BLOO-156 XX (14:05)
== END 2022-02-24 22:00 | disposition home health service (06) | DRG 246 ==
LOC: ER 08:12 → TELE 10:46 → TELE-WESTW 18:06 → ICU WEST 02-20 16:15 → DOU IN ICU 02-24 08:22
PROVIDERS: ADMIT Hospitalist; ATTEND Internal Medicine
PROC: 027236Z Dilation of Coronary Artery, Three Arteries with Three Drug-eluting Intraluminal Devices, Percutaneous Approach (ICD-10-PCS; principal; 2022-02-21)
PROC: 4A023N7 Measurement of Cardiac Sampling and Pressure, Left Heart, Percutaneous Approach (ICD-10-PCS; 2022-02-21)
PROC: B211YZZ Fluoroscopy of Multiple Coronary Arteries using Other Contrast (ICD-10-PCS; 2022-02-21)
PROC: B215YZZ Fluoroscopy of Left Heart using Other Contrast (ICD-10-PCS; 2022-02-21)
DX: I16.1 Hypertensive emergency (principal); I63.9 Cerebral infarction, unspecified; I67.83 Posterior reversible encephalopathy syndrome; G81.94 Hemiplegia, unspecified affecting left nondominant side; I24.9 Acute ischemic heart disease, unspecified; I67.4 Hypertensive encephalopathy; N18.2 Chronic kidney disease, stage 2 (mild); I25.10 Atherosclerotic heart disease of native coronary artery without angina pectoris; E11.40 Type 2 diabetes mellitus with diabetic neuropathy, unspecified; E11.22 Type 2 diabetes mellitus with diabetic chronic kidney disease; E78.5 Hyperlipidemia, unspecified; G47.10 Hypersomnia, unspecified; F32.A Depression, unspecified; R00.1 Bradycardia, unspecified; R81 Glycosuria; E11.65 Type 2 diabetes mellitus with hyperglycemia; Z20.822 Contact with and (suspected) exposure to COVID-19
CPT/HCPCS: 36415; 70450; 70496; 70498; 70551; 71045; 80048; 80053; 80061; 81001; 82550; 82728; 82962; 83036; 83615; 83690; 83735; 83880; 84100; 84443; 84484; 84550; 85025; 85379; 85610; 85652; 85730; 86141; 86850; 86900; 86901; 87040; 87081; 87086; 93005; 93306; 93886; 93975; 96372; 96374; 99152; 99153; 99291; C1874; C1887; G0378; J1815; J2001; J2250; J2405; J3490; Q9967

== ENCOUNTER → 2022-08-04 | Outpatient (CLI) | payer OTHER, MEDICAID ==
[~2022-08-04] MED LIST changes: +BLOO-156 XX; +ERGO1CAP23 PO; -METO-158 PO; +METO-159 PO; +NIFE1TAB31 PO; -TRAM50TA2 PO
== END | disposition home or self-care (01) ==
LOC: XY 08:22
PROVIDERS: ATTEND Internal Medicine
DX: I73.9 Peripheral vascular disease, unspecified (principal)
CPT/HCPCS: 93925